=== PATIENT | male | born 1930 | race American Indian/Alaskan Native ===

== ENCOUNTER 2017-06-17 12:46 | Emergency (ER) | payer MEDICARE ==
--- NOTE | 2017-06-17 13:57 | Emergency Department Report ---
- General Chief complaint: Weakness Stated complaint: HEADACHE Time Seen by Provider: 06/17/17 13:26 Source: patient, EMS Mode of arrival: Stretcher Limitations: Other - History of Present Illness Initial comments: Patient woke up this morning feeling like his normal self. While at the center with friends started to look like he might pass out. So, his friends called 911 and he was brought to the ER. At time of presentation to the ER, patient feels that his normal self. He has no complaints. He is unsure of when he last had his blood pressure medication. Denies palpitations, dizziness , chest pain, shortness of breath, belly pain, numbness, weakness. MD Complaint: generalized weakness Severity scale (0 -10): 0 - Related Data Allergies Allergy/AdvReac Type Severity Reaction Status Date / Time No Known Allergies Allergy Unverified 06/17/17 12:57 ED Review of Systems ROS: Stated complaint: HEADACHE Other details as noted in HPI Comment: All other systems reviewed and negative Neurological: weakness ED Past Medical Hx - Past Medical History Hx Hypertension: Yes - Surgical History Hx Pacemaker: Yes Hx Internal Defibrillator: Yes - Social History Smoking Status: Never Smoker Substance Use Type: None ED Physical Exam - General Limitations: Other General appearance: alert, in no apparent distress - Head Head exam: Present: atraumatic, normocephalic - Eye Eye exam: Present: normal appearance - ENT ENT exam: Present: mucous membranes moist - Neck Neck exam: Present: normal inspection - Respiratory Respiratory exam: Present: normal lung sounds bilaterally. Absent: respiratory distress - Cardiovascular Cardiovascular Exam: Present: regular rate, normal rhythm. Absent: systolic murmur, diastolic murmur, rubs, gallop - GI/Abdominal GI/Abdominal exam: Present: soft. Absent: tenderness - Rectal Rectal exam: Present: deferred - Extremities Exam Extremities exam: Present: normal inspection (gross extremity strength 5/5) - Back Exam Back exam: Present: normal inspection - Neurological Exam Neurological exam: Present: alert, oriented X3 - Psychiatric Psychiatric exam: Present: normal affect, normal mood - Skin Skin exam: Present: warm, dry, intact, normal color. Absent: rash ED Course Vital Signs 06/17/17 06/17/17 06/17/17 12:57 13:01 13:15 Temperature 98.8 F Pulse Rate 63 61 Respiratory 18 19 Rate Blood Pressure 196/88 197/91 Blood Pressure [Right] O2 Sat by Pulse 100 97 100 Oximetry 06/17/17 06/17/17 06/17/17 13:19 13:20 13:22 Temperature 98.4 F Pulse Rate 82 82 Respiratory 21 21 Rate Blood Pressure Blood Pressure 144/71 [Right] O2 Sat by Pulse 96 98 Oximetry ED Medical Decision Making - Lab Data Result diagrams: 06/17/17 13:46 06/17/17 13:46 - EKG Data -: EKG Interpreted by Me EKG shows normal: sinus rhythm, axis, QRS complexes, ST-T waves Rate: bradycardia - EKG Data Interpretation: other (1st degree heart block) - Medical Decision Making 86-year-old male with history of hypertension presents to the ER with transient weakness. Symptoms are resolved prior to ER arrival. From talking with the patient and his become very vague and nonspecific. Low suspicion for CVA event. Lab work shows concerns for dehydration. Patient was given IV fluids in the ER. EKG is nonischemic. Patient is hypertensive in the ER, but a somatic. He is unsure what medication he takes at home. His does not know either. Patient has never been to this ER before. Since he is asymptomatic, patient does not need emergent treatment of his blood pressure. I 've instructed him to take his blood pressure medication once he gets home. Of note, potassium is also 6. Per the , he does take potassium supplements at home. He is showing no EKG changes of hyperkalemia. I have told him to hold his potassium supplements for the next 3 days and to return to his clinic or the ER for recheck of his potassium at that time. His is in agreement with this plan. Cleared for discharge. - Differential Diagnosis CVA, left leg abnormality, arrhythmia, dehydration, sepsis Critical care attestation.: If time is entered above; I have spent that time in minutes in the direct care of this critically ill patient, excluding procedure time. ED Disposition Clinical Impression: Weakness, Hypertension, Hyperkalemia Disposition: DC-01 TO HOME OR SELFCARE Is pt being admited?: No Does the pt Need Aspirin: No Condition: Stable Instructions: Hypertension (ED), Hyperkalemia (ED) Additional Instructions: Your potassium today was 6. Stop taking your potassium supplements. Take your blood pressure medications as soon as you get home. Have your potassium level re -checked in 3 days.
[2017-06-17 14:06] LABS: Basophils # (Auto) 0.1 K/mm3 (0.0-0.1); Basophils % (Auto) 1.5 % (0.0-1.8); Eosinophils # (Auto) 0.2 K/mm3 (0.0-0.4); Hematocrit 38.4 % (35.5-45.6); Hemoglobin 12.2 gm/dl (11.8-15.2); Lymphocytes # (Auto) 1.6 K/mm3 (1.2-5.4); Lymphocytes % (Auto) 31.9 % (13.4-35.0); Mean Corpuscular HGB Conc 32 % (32-34); Mean Corpuscular Hemoglobin 27 pg (28-32); Mean Corpuscular Volume 85 fl (84-94); Monocytes # (Auto) 0.6 K/mm3 (0.0-0.8); Platelet Count 228 K/mm3 (140-440); Red Blood Count 4.49 M/mm3 (3.65-5.03); Red Cell Distribution Width 14.1 % (13.2-15.2)
[2017-06-17 14:12] LABS: BUN/Creatinine Ratio 15; Blood Urea Nitrogen 23 mg/dL (9-20); Calcium 8.9 mg/dL (8.4-10.2); Hemolysis Index 165
[2017-06-17] MEDS ORDERED: NACL 0.9% 1000 ML 1,000 ML IV ONE (14:55)
[2017-06-17] MEDS ORDERED: NACL 0.9% 1000 ML 2,000 ML IV ONE (14:56)
[2017-06-17 18:11] VITALS: BP 191/94
== END 2017-06-17 18:44 | disposition home or self-care (01) ==
LOC: ED 12:46
DX: I10 Essential (primary) hypertension (principal); E87.5 Hyperkalemia
CPT/HCPCS: 36415; 80048; 84484; 85025; 93005; 93010; 96360; 99283; J7030